=== PATIENT | male | born 1965 | race Two or more races ===

== ENCOUNTER 2019-04-11 17:22 | Inpatient (IN) | payer OTHER ==
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
[2019-04-12] MEDS ORDERED: MAGNESIUM HYDROX 2400MG/30ML ORAL SUSPENSION 30 ML CUP PO PRN (01:49)
[2019-04-12] MEDS ORDERED: P-EPHED 60MG/TRIPROLIDI 2.5MG TABLET PO PRN (01:49)
[2019-04-12] MEDS ORDERED: NICOTINE POLACRILEX 2 MG GUM BC PRN (01:49)
[2019-04-12] MEDS ORDERED: MAGNESIUM CITRATE 300 ML BOTTLE PO PRN (01:49)
[2019-04-12] MEDS ORDERED: LOPERAMIDE HCL 2 MG CAPSULE PO PRN (01:49)
[2019-04-12] MEDS ORDERED: MENTHOL/PHENOL 1 EACH UD MM PRN (01:49)
[2019-04-12] MEDS ORDERED: LIDOCAINE VISCOUS 2% ORAL/TOP 100 ML BOTTLE MM PRN (01:52)
[2019-04-12] MEDS ORDERED: AMMONIUM LACTATE 12% LOTION 225 GM BOTTLE TP PRN (01:54)
[2019-04-12] MEDS ORDERED: guaiFENesin 200 MG/10 ML 10 ML UNIT-DOSE CUPS PO SCH (02:00)
[2019-04-12] MEDS ORDERED: ALBUTEROL SO4 2.5/IPRATROPIUM 0.5 INH SOL 3 ML VIAL.NEB. NEB SCH ×2 (02:00→08:00)
[2019-04-12] MEDS: ALBUTEROL SO4 2.5/IPRATROPIUM 0.5 INH SOL 3 ML VIAL.NEB. NEB SCH ×3 (06:21→18:00)
[2019-04-12] MEDS ORDERED: METHADONE HCL 40 MG DISPERSABLE TABLET PO ONE (08:00)
[2019-04-12] MEDS ORDERED: METHADONE HCL 10 MG TABLET PO ONE (08:00)
[2019-04-12] MEDS: ASPIRIN 81 MG CHEWABLE TABLETS PO SCH (09:11)
[2019-04-12] MEDS: PRENATAL VITAMINS W/ FOLIC ACID TABLET (FP) PO SCH (09:11)
[2019-04-12] MEDS: BACITRACIN 15 GM TUBE TOPICAL OINTMENT TP SCH ×2 (09:14→21:59)
[2019-04-12 11:45] LABS: HEMATOCRIT 27.5 % (35.4-49); HEMOGLOBIN 8.9 GM/dL (11.7-16.9); MCH 31.6 pg (25.7-33.7); MCHC 32.2 g/dl (32.0-35.9); MEAN CELL VOLUME 98.1 fl (80-96); MEAN PLT VOLUME 9.4 fl (7.5-11.1); PLATELET COUNT 292 K/MM3 (134-434); RDW 16.1 % (11.9-15.9); WHITE BLOOD COUNT 5.1 K/mm3 (4.0-10.0)
[2019-04-12] MEDS: guaiFENesin 200 MG/10 ML 10 ML UNIT-DOSE CUPS PO SCH ×3 (12:00→23:41)
[2019-04-12 12:10] LABS: ALBUMIN 2.4 g/dl (3.4-5.0); BILIRUBIN,TOTAL 0.4 mg/dL (0.2-1); BLOOD UREA NITROGEN 15.4 mg/dL (7-18); CALCIUM 7.9 mg/dL (8.5-10.1); CREATININE 1.4 mg/dL (0.55-1.3); POTASSIUM 4.8 mmol/L (3.5-5.1); TOT PROT 6.9 g/dl (6.4-8.2)
--- NOTE | 2019-04-12 15:43 | EKG ---
Test Reason : Blood Pressure : / mmHG Vent. Rate : 070 BPM Atrial Rate : 070 BPM P-R Int : 142 ms QRS Dur : 072 ms QT Int : 376 ms P-R-T Axes : 062 067 039 degrees QTc Int : 406 ms NORMAL SINUS RHYTHM POSSIBLE LEFT ATRIAL ENLARGEMENT BORDERLINE ECG NO PREVIOUS ECGS AVAILABLE Confirmed by DOM MCNEIL, HARRIETT ([id number]) on 04/12/2019 3:42:51 PM Referred By: IRVIN ALVARADO Confirmed By:HARRIETT FERNANDES MD
--- NOTE | 2019-04-12 21:01 | PN ---
[facility] Progress Note Note: Vital Signs Temperature 98.6 F 04/12/19 20:45 Pulse Rate 81 04/12/19 20:45 Respiratory Rate 16 04/12/19 20:45 Blood Pressure 94/48 L 04/12/19 20:45 O2 Sat by Pulse Oximetry (%) 96 04/12/19 07:00 phone call received from RODNEY Jama patient with O2 Sat 86 Patient was reassess ambulating comfortably with O2 2L NC, no signs or symptom of distress, O2 Sat at this time 93 s1 s1, no JVD, lungs clear through out, no acute symptoms or distress, cachetic
[2019-04-12] MEDS: hydrOXYzine PAMOATE 50 MG CAPSULE (FP) PO PRN (21:28)
[2019-04-12] MEDS: THIAMINE HCL 100 MG TABLET (FP) PO SCH (21:28)
[2019-04-12] MEDS ORDERED: PT OWN MED DRAWER 7, Y5N ONE (21:57)
[2019-04-12] MEDS ORDERED: MELATONIN 5 MG TABLETS PO PRN (22:00)
[2019-04-13] MEDS: METHADONE HCL 40 MG DISPERSABLE TABLET PO SCH (06:20)
[2019-04-13] MEDS: guaiFENesin 200 MG/10 ML 10 ML UNIT-DOSE CUPS PO SCH ×4 (06:20→23:04)
[2019-04-13] MEDS: ALBUTEROL SO4 2.5/IPRATROPIUM 0.5 INH SOL 3 ML VIAL.NEB. NEB SCH ×5 (06:22→23:04)
[2019-04-13] MEDS: PRENATAL VITAMINS W/ FOLIC ACID TABLET (FP) PO SCH (10:25)
[2019-04-13] MEDS: BACITRACIN 15 GM TUBE TOPICAL OINTMENT TP SCH ×2 (10:25→22:14)
[2019-04-13] MEDS: ASPIRIN 81 MG CHEWABLE TABLETS PO SCH (10:25)
[2019-04-13 19:39] LABS: URINE APPEARANCE CLEAR; URINE BILIRUBIN NEGATIVE (NEGATIVE); URINE COLOR YELLOW; URINE GLUCOSE (UA) NEGATIVE (NEGATIVE); URINE KETONE NEGATIVE (NEGATIVE); URINE NITRITE NEGATIVE (NEGATIVE); URINE PROTEIN NEGATIVE (NEGATIVE)
[2019-04-13 19:40] LABS: EPI CELLS 0.5 /HPF (0-5/HPF); URINE LEUK ESTERASE TRACE (NEGATIVE); URINE RBC 40.1 /hpf (0-4); URINE WBC 4.7 /hpf (0-5)
[2019-04-13] MEDS: MAG HYDROX/AL HYDROX/SIMETH 30 ML UNIT-DOSE CUP PO PRN (20:51)
[2019-04-13] MEDS: THIAMINE HCL 100 MG TABLET (FP) PO SCH (22:14)
[2019-04-13] MEDS: ACETAMINOPHEN 325 MG TABLET (FP) PO PRN (22:28)
[2019-04-14] MEDS: IBUPROFEN 400 MG TABLET (FP) PO PRN (00:06)
[2019-04-14] MEDS: ALBUTEROL SO4 2.5/IPRATROPIUM 0.5 INH SOL 3 ML VIAL.NEB. NEB SCH ×4 (00:08→18:26)
[2019-04-14] MEDS: hydrOXYzine PAMOATE 50 MG CAPSULE (FP) PO PRN (00:53)
[2019-04-14] MEDS: METHADONE HCL 40 MG DISPERSABLE TABLET PO SCH (05:51)
[2019-04-14] MEDS: guaiFENesin 200 MG/10 ML 10 ML UNIT-DOSE CUPS PO SCH ×3 (05:52→18:04)
[2019-04-14] MEDS: PRENATAL VITAMINS W/ FOLIC ACID TABLET (FP) PO SCH (10:55)
[2019-04-14] MEDS: ASPIRIN 81 MG CHEWABLE TABLETS PO SCH (10:55)
[2019-04-14] MEDS: BACITRACIN 15 GM TUBE TOPICAL OINTMENT TP SCH ×2 (10:55→21:34)
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
[2019-04-14] MEDS: MAG HYDROX/AL HYDROX/SIMETH 30 ML UNIT-DOSE CUP PO PRN ×2 (12:08→22:36)
[2019-04-14] MEDS: ACETAMINOPHEN 325 MG TABLET (FP) PO PRN (18:06)
[2019-04-14] MEDS: THIAMINE HCL 100 MG TABLET (FP) PO SCH (21:35)
[2019-04-15] MEDS: METHADONE HCL 40 MG DISPERSABLE TABLET PO SCH (06:03)
[2019-04-15] MEDS: guaiFENesin 200 MG/10 ML 10 ML UNIT-DOSE CUPS PO SCH ×4 (06:03→18:11)
[2019-04-15] MEDS: ALBUTEROL SO4 2.5/IPRATROPIUM 0.5 INH SOL 3 ML VIAL.NEB. NEB SCH ×5 (06:34→23:43)
[2019-04-15] MEDS: ASPIRIN 81 MG CHEWABLE TABLETS PO SCH (09:41)
[2019-04-15] MEDS: hydrOXYzine PAMOATE 50 MG CAPSULE (FP) PO PRN ×2 (09:41→21:27)
[2019-04-15] MEDS: PRENATAL VITAMINS W/ FOLIC ACID TABLET (FP) PO SCH (09:41)
[2019-04-15] MEDS: BACITRACIN 15 GM TUBE TOPICAL OINTMENT TP SCH ×2 (09:42→21:28)
[2019-04-15] MEDS: IBUPROFEN 400 MG TABLET (FP) PO PRN ×2 (09:42→23:03)
[2019-04-15] MEDS: ACETAMINOPHEN 325 MG TABLET (FP) PO PRN (15:35)
[2019-04-15] MEDS: MAG HYDROX/AL HYDROX/SIMETH 30 ML UNIT-DOSE CUP PO PRN (18:37)
[2019-04-15] MEDS: THIAMINE HCL 100 MG TABLET (FP) PO SCH (21:27)
[2019-04-16] MEDS: guaiFENesin 200 MG/10 ML 10 ML UNIT-DOSE CUPS PO SCH ×5 (05:50→23:16)
[2019-04-16] MEDS: METHADONE HCL 40 MG DISPERSABLE TABLET PO SCH (05:50)
[2019-04-16] MEDS: ALBUTEROL SO4 2.5/IPRATROPIUM 0.5 INH SOL 3 ML VIAL.NEB. NEB SCH ×4 (06:33→23:16)
--- NOTE | 2019-04-16 06:40 | PN ---
[facility] Progress Note Note: Patient reports hitting his nose on the wall. He states that he was in the bathroom, got up to transfer to the chair and hit his nose on the nearby wall. he states that he did not have pain and he did not report the incident to the staff at that time. Patient was examined in his room. No physical injury, bruises, redness or skin discoloration noted or reported at this time. Patient reports pain now at 2/10 and tolerable. Vital signs stable. Will monitor patient Temperature 98.3 F 04/15/19 06:43 Pulse Rate 82 04/16/19 03:30 Respiratory Rate 18 04/16/19 00:30 Blood Pressure 108/66 04/15/19 06:43 O2 Sat by Pulse Oximetry (%) 94 L 04/16/19 03:30 Action: Tylenol 325mg tablet 2 tablets oral as needed recommended.
[2019-04-16] MEDS: PRENATAL VITAMINS W/ FOLIC ACID TABLET (FP) PO SCH (10:02)
[2019-04-16] MEDS: ASPIRIN 81 MG CHEWABLE TABLETS PO SCH (10:03)
[2019-04-16] MEDS: BACITRACIN 15 GM TUBE TOPICAL OINTMENT TP SCH ×2 (10:03→21:37)
[2019-04-16] MEDS: ACETAMINOPHEN 325 MG TABLET (FP) PO PRN (15:20)
[2019-04-16] MEDS ORDERED: ONDANSETRON *ODT* 4 MG TABLET SL PRN (15:42)
--- NOTE | 2019-04-16 15:45 | PN ---
S Progress Note Note: nausea,vomiting Vital Signs Temperature 97.6 F 04/16/19 09:31 Pulse Rate 89 04/16/19 12:33 Respiratory Rate 20 04/16/19 09:31 Blood Pressure 100/59 L 04/16/19 09:31 O2 Sat by Pulse Oximetry (%) 93 L 04/16/19 12:33 zofran sl flim 4 mgs q 6 hrs prn for nausea,vomiting close monitoring
[2019-04-16] MEDS: THIAMINE HCL 100 MG TABLET (FP) PO SCH (21:32)
[2019-04-16] MEDS: IBUPROFEN 400 MG TABLET (FP) PO PRN (21:32)
[2019-04-16] MEDS: hydrOXYzine PAMOATE 50 MG CAPSULE (FP) PO PRN (21:32)
--- NOTE | 2019-04-16 23:47 | PN ---
S Progress Note Note: Patient's temperature this evening is T 101.2F Vital Signs Temperature 101.2 F H 04/16/19 22:27 Pulse Rate 85 04/16/19 22:27 Respiratory Rate 18 04/16/19 22:27 Blood Pressure 130/77 04/16/19 22:27 O2 Sat by Pulse Oximetry (%) 97 04/16/19 15:00 Action: Labs CBC and Urine analysis ordered Acetaminophen 325mg tablet 2 tablets oral Q6H as needed
[2019-04-17] MEDS: ACETAMINOPHEN 325 MG TABLET (FP) PO PRN (01:59)
[2019-04-17] MEDS: ALBUTEROL SO4 2.5/IPRATROPIUM 0.5 INH SOL 3 ML VIAL.NEB. NEB SCH ×3 (06:37→17:39)
[2019-04-17] MEDS: METHADONE HCL 40 MG DISPERSABLE TABLET PO SCH (07:05)
[2019-04-17] MEDS: guaiFENesin 200 MG/10 ML 10 ML UNIT-DOSE CUPS PO SCH ×3 (07:05→17:40)
--- NOTE | 2019-04-17 09:37 | PN ---
[facility] Progress Note Note: Patient seen for fever- 101.0 this morning, hypotension and low O2 sats. CXR + upper lobes patch infiltrates. Patient has hx of untreated HIV, Hep C. 53 year old male with ETOH/Cocaine dependence. Laboratory Tests 04/12/19 04/12/19 04/12/19 08:30 08:30 08:30 WBC 5.1 RBC 2.80 L Hgb 8.9 L Hct 27.5 L MCV 98.1 H MCH 31.6 MCHC 32.2 RDW 16.1 H Plt Count 292 MPV 9.4 Sodium 135 L Potassium 4.8 Chloride 102 Carbon Dioxide 26 Anion Gap 7 L BUN 15.4 Creatinine 1.4 H Est GFR (CKD-EPI)AfAm 66.01 Est GFR (CKD-EPI)NonAf 56.96 Random Glucose 106 Calcium 7.9 L Total Bilirubin 0.4 AST 55 H ALT 22 Alkaline Phosphatase 102 Total Protein 6.9 Albumin 2.4 L Urine Color Urine Appearance Urine pH Ur Specific [place] Urine Protein Urine Glucose (UA) Urine Ketones Urine Blood Urine Nitrite Urine Bilirubin Urine Urobilinogen Ur Leukocyte Esterase Urine WBC (Auto) Urine RBC (Auto) Urine Casts (Auto) U Epithel Cells (Auto) Urine Bacteria (Auto) RPR Titer Nonreactive 04/13/19 15:44 WBC RBC Hgb Hct MCV MCH MCHC RDW Plt Count MPV Sodium Potassium Chloride Carbon Dioxide Anion Gap BUN Creatinine Est GFR (CKD-EPI)AfAm Est GFR (CKD-EPI)NonAf Random Glucose Calcium Total Bilirubin AST ALT Alkaline Phosphatase Total Protein Albumin Urine Color Yellow Urine Appearance Clear Urine pH 7.0 Ur Specific [place] 1.015 Urine Protein Negative Urine Glucose (UA) Negative Urine Ketones Negative Urine Blood Moderate Urine Nitrite Negative Urine Bilirubin Negative Urine Urobilinogen 1.0 Ur Leukocyte Esterase Trace Urine WBC (Auto) 4.7 Urine RBC (Auto) 40.1 Urine Casts (Auto) 1.10 U Epithel Cells (Auto) 0.5 Urine Bacteria (Auto) 2.0 RPR Titer Vital Signs - 24 hr 04/16/19 04/16/19 04/16/19 11:00 12:33 15:00 Temperature Pulse Rate 89 89 88 Respiratory Rate Blood Pressure O2 Sat by Pulse 99 93 L 97 Oximetry (%) 04/16/19 04/16/19 04/17/19 15:45 22:27 01:30 Temperature 100.3 F H 101.2 F H Pulse Rate 100 H 85 99 H Respiratory 20 18 Rate Blood Pressure 118/56 L 130/77 O2 Sat by Pulse 88 L Oximetry (%) 04/17/19 04/17/19 04/17/19 01:45 02:00 06:00 Temperature 101.2 F H Pulse Rate Respiratory Rate Blood Pressure O2 Sat by Pulse 92 L 87 L Oximetry (%) 04/17/19 04/17/19 04/17/19 07:13 07:34 07:35 Temperature 98.8 F Pulse Rate 80 80 Respiratory 20 Rate Blood Pressure 80/49 L 90/53 L O2 Sat by Pulse 92 L Oximetry (%) PE: alert and oriented x 3 cachetic skin warm and dry car s1s2 BP repeated 89/62 resp diminished BS, no audible wheezes, rhonchi O2 sats 90-92% on room air ext no visible edema a/p: PNA Fever HIV+/Hep C untreated cachetic Patient to transfer to ER for evaluation and ID consultation Report given to Dr. Reed
[2019-04-17 10:39] VITALS: BP 92/50; PULSE 89; TEMP 98.5
[2019-04-17] MEDS: ASPIRIN 81 MG CHEWABLE TABLETS PO SCH (11:08)
[2019-04-17] MEDS: BACITRACIN 15 GM TUBE TOPICAL OINTMENT TP SCH ×2 (11:08→22:34)
[2019-04-17] MEDS: PRENATAL VITAMINS W/ FOLIC ACID TABLET (FP) PO SCH (11:09)
[2019-04-17 12:14] LABS: HEMATOCRIT 26.5 % (35.4-49); HEMOGLOBIN 8.5 GM/dL (11.7-16.9); MCHC 32.1 g/dl (32.0-35.9); MEAN CELL VOLUME 96.6 fl (80-96); MEAN PLT VOLUME 9.9 fl (7.5-11.1); PLATELET COUNT 224 K/MM3 (134-434); RBC 2.74 M/mm3 (4.00-5.60); RDW 16.6 % (11.9-15.9); WHITE BLOOD COUNT 8.9 K/mm3 (4.0-10.0)
[2019-04-17] MEDS: THIAMINE HCL 100 MG TABLET (FP) PO SCH (22:34)
== END 2019-04-17 14:45 | disposition short-term general hospital (02) | DRG 773 ==
LOC: YASAS 17:22 → Y3W 04-12 01:19
PROVIDERS: ADMIT Surgery; ATTEND Surgery
PROC: HZ2ZZZZ Detoxification Services for Substance Abuse Treatment (ICD-10-PCS; principal; 2019-04-12)
DX: F10.230 Alcohol dependence with withdrawal, uncomplicated (principal); F11.20 Opioid dependence, uncomplicated; F14.20 Cocaine dependence, uncomplicated; F17.210 Nicotine dependence, cigarettes, uncomplicated; Z21 Asymptomatic human immunodeficiency virus [HIV] infection status; B18.2 Chronic viral hepatitis C; J18.9 Pneumonia, unspecified organism; R50.9 Fever, unspecified; J44.9 Chronic obstructive pulmonary disease, unspecified; K12.0 Recurrent oral aphthae; X78.9XXA Intentional self-harm by unspecified sharp object, initial encounter; W22.01XA Walked into wall, initial encounter; Y93.89 Activity, other specified; Y92.231 Patient bathroom in hospital as the place of occurrence of the external cause; R63.6 Underweight; Z68.1 Body mass index [BMI] 19.9 or less, adult
CPT/HCPCS: 36415; 71046-TC-FY; 80053; 81003; 85027; 86593; 93005; 93010; 94640

== ENCOUNTER 2019-04-17 10:36 | Inpatient (IN) | payer OTHER ==
[2019-04-17 10:49] VITALS: BMI 17.2
[2019-04-17 12:21] LABS: BASO % 0.1 % (0-2.0); EOS % 1.5 % (0-4.5); HEMATOCRIT 27.8 % (35.4-49); LYMPH % 13.1 % (8-40); MCH 31.3 pg (25.7-33.7); MCHC 32.4 g/dl (32.0-35.9); MEAN CELL VOLUME 96.6 fl (80-96); MONO % 7.9 % (3.8-10.2); NEUT % 77.4 % (42.8-82.8); PLATELET COUNT 208 K/MM3 (134-434); RBC 2.87 M/mm3 (4.00-5.60); WHITE BLOOD COUNT 7.9 K/mm3 (4.0-10.0)
[2019-04-17 12:44] LABS: ALBUMIN 2.5 g/dl (3.4-5.0); BILIRUBIN,TOTAL 0.3 mg/dL (0.2-1); BLOOD UREA NITROGEN 26.9 mg/dL (7-18); CREATININE 1.4 mg/dL (0.55-1.3); MAGNESIUM 2.4 mg/dL (1.8-2.4); POTASSIUM 4.4 mmol/L (3.5-5.1); TOT PROT 7.1 g/dl (6.4-8.2)
[2019-04-17] MEDS ORDERED: ALBUTEROL SO4 2.5/IPRATROPIUM 0.5 INH SOL 3 ML VIAL.NEB. NEB ONE ×3 (12:57→15:58)
[2019-04-17] MEDS ORDERED: methylPREDNISolone NA SUCC 125 MG/2 ML VIAL IVPUSH ONE (12:58)
--- NOTE | 2019-04-17 13:00 | PDOC ---
Documentation entered by Stiven Camarena SCRIBE, acting as scribe for Elvia Norris MD. Elvia Norris MD: This documentation has been prepared by the Migue ramirez Joel, SCRIBE, under my direction and personally reviewed by me in its entirety. I confirm that the documentation accurately reflects all work, treatment, procedures, and medical decision making performed by me. Attending Attestation - Resident Resident Name: OrozcoDiego - ED Attending Attestation I have performed the following: I have examined & evaluated the patient, The case was reviewed & discussed with the resident, I agree w/resident's findings & plan - HPI HPI: 04/17/19 11:13 The patient is a 53 year old male with a significant PMH of poorly controlled HIV & hepatitis C, alcohol dependence, crack-cocaine abuse, & COPD (not on home O2) who presents to the emergency department from [facility] for evaluation of fever and shortness of breath since last night. The patient was sent over this morning after [facility] noted a 101F fever and remarkable CXR. The patient denies chest pain, headache, and dizziness. Denies chills, nausea, vomiting, diarrhea, and constipation. Denies dysuria, urgency, frequency, and hematuria. Allergies: NKA Social history: Crack-cocaine use. Alcohol use. Tobacco use. - Physicial Exam PE: 04/17/19 12:57 Agree with the resident's HPI and PE as documented in the electronic medical record. NAD, cachectic, frail appearing, EOMI, PERRL, MMM, nl conjunctiva, anicteric; neck supple. lungs with faint wheeze, poor inspiratory effort, RRR, abdomen soft nontender. Back nontender. HODGES x4, no focal neuro deficits. No peripheral edema. normal color for ethnicity, very warm to touch. - Medical Decision Making 04/17/19 12:58 See HPI for details. Prior notes reviewed, including admissions, discharges and consultations. Vital signs reviewed, afebrile (historically in [facility] rehab 101 this AM) and hypoxia in low 90s on RA. no respiratory distress baseline with hypotension, soft bp 90s/50s, given fluids per prior records, bp can run low/soft DDX pna, viral syndrome, COPD, URI, dehydration, anemia, immunocompromised infection/fever, bacteremia laboratory results and imaging reviewed, basic labs and lytes wnl, notable for normal wbc ct, baseline anemia. Cr baseline mildly elevated 1.4 CXR_no acute chest pathology, lung scarring, ?right upper/middle lobe opacity. Cardiac panel_neg EKG normal sinus rhythm at 85 bpm, no interval abnormalities, narrow QRS, ST and T wave segments and morphology normal. Nonspecific T wave abnormalities CT chest ordered, pending results officially ED course -interventions: IVF, duonebs, solumedrol. ABX_ceftriaxone and azithromycin - sepsis workup, fever/infectious workup admit for fever, presumed pna vs bronchitis. treat as copd exacerbation as well 04/17/19 13:00 04/17/19 13:00 04/17/19 13:06 04/17/19 13:38 04/17/19 22:09 Heart Score/ECG Review #1 ECG reviewed & interpreted by me at: 13:25 General ECG Interpretation: Sinus Rhythm, Normal Rate, Normal Intervals, No acute ischemic changes 04/17/19 13:38 EKG normal sinus rhythm at 85 bpm, no interval abnormalities, narrow QRS, ST and T wave segments and morphology normal. Nonspecific T wave abnormalities
[2019-04-17] MEDS ORDERED: LACTATED RINGERS SOLUTION 1000 ML INFUS.BAG IV ONE (13:07)
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
[2019-04-17] MEDS ORDERED: CEFTRIAXONE 1,000 MG in DEXTROSE 5%-WATER - 50 ML IVPB ONE ×2 (13:31→13:36)
[2019-04-17] MEDS ORDERED: AZITHROMYCIN IVPB 500 MG in DEXTROSE 5%-WATER - 250 ML IVPB ONE (13:35)
[2019-04-17] MEDS ORDERED: AZITHROMYCIN IVPB 500 MG/250 ML BAG IVPB ONE (13:46)
[2019-04-17] MEDS ORDERED: methylPREDNISolone NA SUCC 125 MG/2 ML VIAL ONE (13:47)
[2019-04-17] MEDS ORDERED: CEFTRIAXONE 1 GM/50 ML BAG ONE (14:55)
[2019-04-17 15:09] LABS: EPI CELLS 0.3 /HPF (0-5/HPF); HYALINE CASTS 0 /lpf (0-8); PH,URINE 7.5 (5.0-8.0); URINE APPEARANCE CLEAR; URINE BACTERIA 0 /hpf (NEGATIVE); URINE BILIRUBIN NEGATIVE (NEGATIVE); URINE COLOR YELLOW; URINE GLUCOSE (UA) NEGATIVE (NEGATIVE); URINE KETONE NEGATIVE (NEGATIVE); URINE LEUK ESTERASE NEGATIVE (NEGATIVE); URINE NITRITE NEGATIVE (NEGATIVE); URINE PROTEIN NEGATIVE (NEGATIVE); URINE RBC 22 /hpf (0-4); URINE UROBILINOGEN 0.2 mg/dL (0.2-1.0); URINE WBC 1 /hpf (0-5)
--- NOTE | 2019-04-17 19:29 | HP ---
Admitting History and Physical - Primary Care Physician PCP: Victor Hugo Edmond - Admission History of Present Illness: 53 year old male with a significant PMH of poorly controlled HIV & hepatitis C, alcohol dependence, crack-cocaine abuse, & COPD (not on home O2) who presents to the emergency department from [facility] for evaluation of fever and shortness of breath since last night. The patient was sent over this morning after [facility] noted a 101F fever and remarkable CXR. - Past Medical History Pulmonary: Yes: COPD Infectious Disease: Yes: HIV, Other (hepc) - Smoking History Smoking history: Unknown if ever smoked Have you smoked in the past 12 months: Yes Aproximately how many cigarettes per day: 2 - Alcohol/Substance Use Hx Alcohol Use: Yes Home Medications - Allergies Allergies/Adverse Reactions: Allergies Allergy/AdvReac Type Severity Reaction Status Date / Time No Known Allergies Allergy Verified 04/17/19 10:49 - Home Medications Home Medications: Ambulatory Orders Methadone HCl [Dolophine HCl] 80 mg PO DAILY 04/17/19 hydrOXYzine PAMOATE [Vistaril -] 50 mg PO Q4H 04/17/19 Physical Examination Vital Signs: Vital Signs Temperature 98.8 F 04/17/19 13:36 Pulse Rate 93 H 04/17/19 13:36 Respiratory Rate 16 04/17/19 13:01 Blood Pressure 112/79 04/17/19 13:36 O2 Sat by Pulse Oximetry (%) 95 04/17/19 13:36 Constitutional: Yes: No Distress HENT: Yes: Atraumatic Neck: Yes: Supple Cardiovascular: Yes: Regular Rate and Rhythm Respiratory: Yes: CTA Bilaterally Gastrointestinal: Yes: Normal Bowel Sounds Extremities: Yes: WNL Edema: No Neurological: Yes: Alert, Oriented Labs: CBC, BMP 04/17/19 12:00 04/17/19 12:00 Problem List - Problems (1) AIDS (acquired immunodeficiency syndrome), CD4 <=200/<=14% Assessment/Plan: not on meds Code(s): B20 - HUMAN IMMUNODEFICIENCY VIRUS [HIV] DISEASE (2) COPD with asthma Code(s): J44.9 - CHRONIC OBSTRUCTIVE PULMONARY DISEASE, UNSPECIFIED (3) HIV (human immunodeficiency virus infection) Code(s): B20 - HUMAN IMMUNODEFICIENCY VIRUS [HIV] DISEASE Qualifiers: (4) Pneumonia Assessment/Plan: iv bax id consult Code(s): J18.9 - PNEUMONIA, UNSPECIFIED ORGANISM Qualifiers: Pneumonia type: due to unspecified organism Laterality: bilateral Lung location: upper lobe of lung Qualified Code(s): J18.1 - Lobar pneumonia, unspecified organism Assessment/Plan Laboratory Tests 04/17/19 04/17/19 04/17/19 12:00 12:00 12:00 WBC 7.9 RBC 2.87 L Hgb 9.0 L Hct 27.8 L MCV 96.6 H MCH 31.3 MCHC 32.4 RDW 16.0 H Plt Count 208 MPV 9.0 Absolute Neuts (auto) 6.1 Neutrophils % 77.4 Lymphocytes % 13.1 Monocytes % 7.9 Eosinophils % 1.5 Basophils % 0.1 Nucleated RBC % 0 Sodium 135 L Potassium 4.4 Chloride 102 Carbon Dioxide 30 Anion Gap 3 L BUN 26.9 H Creatinine 1.4 H Est GFR (CKD-EPI)AfAm 66.01 Est GFR (CKD-EPI)NonAf 56.96 Random Glucose 91 Lactic Acid Calcium 8.0 L Phosphorus 3.0 Magnesium 2.4 Total Bilirubin 0.3 AST 40 H ALT 19 Alkaline Phosphatase 92 Troponin I < 0.02 Total Protein 7.1 Albumin 2.5 L Urine Color Urine Appearance Urine pH Ur Specific [place] Urine Protein Urine Glucose (UA) Urine Ketones Urine Blood Urine Nitrite Urine Bilirubin Urine Urobilinogen Ur Leukocyte Esterase Urine WBC (Auto) Urine RBC (Auto) Urine Casts (Auto) U Epithel Cells (Auto) Urine Bacteria (Auto) 04/17/19 04/17/19 12:00 14:45 WBC RBC Hgb Hct MCV MCH MCHC RDW Plt Count MPV Absolute Neuts (auto) Neutrophils % Lymphocytes % Monocytes % Eosinophils % Basophils % Nucleated RBC % Sodium Potassium Chloride Carbon Dioxide Anion Gap BUN Creatinine Est GFR (CKD-EPI)AfAm Est GFR (CKD-EPI)NonAf Random Glucose Lactic Acid 1.5 Calcium Phosphorus Magnesium Total Bilirubin AST ALT Alkaline Phosphatase Troponin I Total Protein Albumin Urine Color Yellow Urine Appearance Clear Urine pH 7.5 Ur Specific [place] 1.010 Urine Protein Negative Urine Glucose (UA) Negative Urine Ketones Negative Urine Blood 2+ H Urine Nitrite Negative Urine Bilirubin Negative Urine Urobilinogen 0.2 Ur Leukocyte Esterase Negative Urine WBC (Auto) 1 Urine RBC (Auto) 22 Urine Casts (Auto) 0 U Epithel Cells (Auto) 0.3 Urine Bacteria (Auto) 0
[2019-04-17] MEDS: HEPARIN NA (PORCINE) 5,000 UNITS/ML 1ML VIAL SQ SCH (22:50)
[2019-04-17] MEDS ORDERED: HEPARIN NA (PORCINE) 5,000 UNITS/ML 1ML VIAL ONE (23:46)
[2019-04-18 09:32] VITALS: BP 105/59; PULSE 76; TEMP 97.7
[2019-04-18] MEDS ORDERED: HEPARIN NA (PORCINE) 5,000 UNITS/ML 1ML VIAL ONE (09:42)
[2019-04-18] MEDS: HEPARIN NA (PORCINE) 5,000 UNITS/ML 1ML VIAL SQ SCH (09:55)
[2019-04-18 10:06] LABS: BASO % 0.1 % (0-2.0); HEMATOCRIT 25.8 % (35.4-49); HEMOGLOBIN 8.3 GM/dL (11.7-16.9); LYMPH % 8.6 % (8-40); MCH 30.9 pg (25.7-33.7); MCHC 32.2 g/dl (32.0-35.9); MEAN CELL VOLUME 95.8 fl (80-96); MONO % 4.7 % (3.8-10.2); NEUT % 86.6 % (42.8-82.8); RBC 2.69 M/mm3 (4.00-5.60); WHITE BLOOD COUNT 10.7 K/mm3 (4.0-10.0)
[2019-04-18 10:34] LABS: PLATELET COUNT 224 K/MM3 (134-434)
--- NOTE | 2019-04-18 10:35 | EKG ---
Test Reason : Blood Pressure : / mmHG Vent. Rate : 085 BPM Atrial Rate : 085 BPM P-R Int : 140 ms QRS Dur : 082 ms QT Int : 374 ms P-R-T Axes : 064 060 053 degrees QTc Int : 445 ms NORMAL SINUS RHYTHM POSSIBLE LEFT ATRIAL ENLARGEMENT BORDERLINE ECG WHEN COMPARED WITH ECG OF 12-APR-2019 01:24, NO SIGNIFICANT CHANGE WAS FOUND Confirmed by Guillermo Muñiz MD ([id number]) on 04/18/2019 10:35:36 AM Referred By: Confirmed By:Guillermo Muñiz MD
[2019-04-18 10:40] LABS: ALBUMIN 2.5 g/dl (3.4-5.0); BILIRUBIN,TOTAL 0.4 mg/dL (0.2-1); BLOOD UREA NITROGEN 36.8 mg/dL (7-18); CALCIUM 8.2 mg/dL (8.5-10.1); CREATININE 1.7 mg/dL (0.55-1.3); POTASSIUM 5.4 mmol/L (3.5-5.1); TOT PROT 7.1 g/dl (6.4-8.2)
--- NOTE | 2019-04-18 15:58 | DS ---
Physical Examination Vital Signs: Vital Signs Temperature 97.7 F 04/18/19 09:31 Pulse Rate 76 04/18/19 09:31 Respiratory Rate 16 04/18/19 09:31 Blood Pressure 105/59 L 04/18/19 09:31 O2 Sat by Pulse Oximetry (%) 96 04/18/19 09:31 Labs: CBC, BMP 04/18/19 09:45 04/18/19 09:45 Discharge Summary Reason For Visit: FEVER,AIDS,PNEUMONIA Condition: Stable - Instructions Disposition: AGAINST MEDICAL ADVICE - Home Medications Comprehensive Discharge Medication List: Ambulatory Orders Methadone HCl [Dolophine HCl] 80 mg PO DAILY 04/17/19 hydrOXYzine PAMOATE [Vistaril -] 50 mg PO Q4H 04/17/19 dc
== END 2019-04-18 10:36 | disposition left against medical advice (07) | DRG 893 ==
LOC: JER 10:36 → JERBED 15:45 → J5S 04-18 10:10
PROVIDERS: ADMIT Internal Medicine; ATTEND Internal Medicine
PROC: 3E0F7GC Introduction of Other Therapeutic Substance into Respiratory Tract, Via Natural or Artificial Opening (ICD-10-PCS; principal; 2019-04-17)
DX: J18.1 Lobar pneumonia, unspecified organism (principal); B20 Human immunodeficiency virus [HIV] disease; R64 Cachexia; J44.1 Chronic obstructive pulmonary disease with (acute) exacerbation; Z68.1 Body mass index [BMI] 19.9 or less, adult; R09.02 Hypoxemia; B19.20 Unspecified viral hepatitis C without hepatic coma; F11.10 Opioid abuse, uncomplicated; F14.10 Cocaine abuse, uncomplicated; F10.20 Alcohol dependence, uncomplicated; F17.210 Nicotine dependence, cigarettes, uncomplicated; D64.9 Anemia, unspecified
CPT/HCPCS: 36415; 71250-TC; 80053; 81003; 83605; 83735; 84100; 84484; 85025; 87040; 87086; 93005; 93010; 99284-25; J1644